=== PATIENT | male | born 1955 | race African-American/Black ===

== ENCOUNTER 2018-08-24 18:01 | Inpatient (IN) | payer SELFPAY ==
[~2018-08-24] VITALS: Ht 177.8 cm; Wt 88.5 kg
[2018-08-24 20:22] LABS: BASOPHILS % 0.6 % (0.0-2.0); EOSINOPHILS % 1.9 % (0.0-5.0); HEMATOCRIT. 40.5 % (42.0-52.0); HEMOGLOBIN. 13.7 g/dL (14.0-18.0); LYMPHOCYTES % 34.1 % (20.0-50.0); MEAN CORPUSCULAR HEMOGLOBIN 30.9 pg (28.0-32.0); MEAN CORPUSCULAR VOLUME 91.4 fL (80.0-94.0); MONOCYTES % 6.2 % (2.0-8.0); NEUTROPHILS % 57.2 % (40.0-76.0); PLATELET 158 x1000/uL (130-400); RED BLOOD CELL COUNT 4.43 mill/uL (4.7-6.1); RED CELL DISTRIBUTION WIDTH 13.1 % (11.6-14.6)
[2018-08-24 20:30] LABS: CHLORIDE 108 mEq/L (98-107); PARTIAL THROMBOPLASTIN TIME 26.6 sec (23.4-31.0)
[2018-08-24] MEDS ORDERED: ENALAPRIL 2.5MG/2ML VIAL 2ML IV ONE (20:30)
[2018-08-24] MEDS ORDERED: MAGNESIUM/ALUMINUM HYDROXIDE/SIMETHICONE 30ML UDC PO PRN (23:15)
[2018-08-24] MEDS ORDERED: IPRATROPIUM/ALBUTEROL 0.5-3(2.5)MG/3ML NEB INH PRN (23:15)
[2018-08-24] MEDS ORDERED: ACETAMINOPHEN 325MG TABLET PO PRN (23:15)
[2018-08-24] MEDS ORDERED: DOCUSATE SODIUM 100MG CAPSULE PO PRN (23:15)
[2018-08-24] MEDS ORDERED: GUAIFENESIN 200MG/10ML SUGAR FREE UDC PO PRN (23:15)
[2018-08-24] MEDS ORDERED: HYDRALAZINE 20MG/ML VIAL IV PRN ×2 (23:15)
[2018-08-24] MEDS ORDERED: ONDANSETRON HCL 4MG/2ML INJ IV PRN (23:15)
[2018-08-24] MEDS ORDERED: HYDROMORPHONE HCL/PF 2MG/ML CPJ IV PRN (23:15)
[2018-08-24] MEDS ORDERED: DIPHENHYDRAMINE 50MG/ML VIAL IV PRN (23:15)
[2018-08-24] MEDS ORDERED: CLONIDINE 0.1MG TABLET PO PRN (23:15)
[2018-08-24] MEDS ORDERED: LORAZEPAM 2MG/ML CPJ IV PRN (23:15)
[2018-08-24] MEDS ORDERED: NA PHOS,M-B/NA PHOS,DI-BA ENEMA 118ML PR PRN (23:15)
[2018-08-25 00:18] VITALS: BP 153/85
[2018-08-25 04:00] VITALS: BP 139/71
[2018-08-25] MEDS ORDERED: S350 PO (04:24)
[2018-08-25 06:46] LABS: CHLORIDE 111 mEq/L (98-107)
[2018-08-25] MEDS: SODIUM CHLORIDE 0.9% INJ 3ML FLUSH IVF SCH ×3 (06:49→20:30)
[2018-08-25 06:51] LABS: BASOPHILS % 0.6 % (0.0-2.0); EOSINOPHILS % 2.2 % (0.0-5.0); HEMATOCRIT. 38.3 % (42.0-52.0); HEMOGLOBIN. 13.1 g/dL (14.0-18.0); LYMPHOCYTES % 41.9 % (20.0-50.0); MEAN CORPUSCULAR VOLUME 90.8 fL (80.0-94.0); MEAN PLATELET VOLUME 9.2 fl (7.4-10.4); MONOCYTES % 6.7 % (2.0-8.0); NEUTROPHILS % 48.6 % (40.0-76.0); PLATELET 147 x1000/uL (130-400); RED BLOOD CELL COUNT 4.22 mill/uL (4.7-6.1)
[2018-08-25 07:05] LABS: CREATINE KINASE 140 IU/L (39-308)
[2018-08-25 07:08] LABS: CREATINE KINASE MB FRACTION 1.1 ng/mL (0.5-3.6)
[2018-08-25] MEDS: HYDROCODONE/ACETAMINOPHEN 10/325MG TABLET PO PRN (07:43)
[2018-08-25 08:00] VITALS: BP 113/68
[2018-08-25] MEDS: ENOXAPARIN 40MG/0.4ML SYR SUBCUT SCH (09:38)
[2018-08-25 12:00] VITALS: BP 146/82
[2018-08-25] MEDS ORDERED: PNEUMOCOCCAL 23-VAL P-SAC VAC 0.5 ML IM ONE (12:00)
[2018-08-25] MEDS ORDERED: INFLUENZA VIRUS VACCINE(AFLURIA) 0.5ML SYR IM ONE (12:00)
[2018-08-25 16:00] VITALS: BP 138/75
[2018-08-25 16:45] LABS: CREATINE KINASE 127 IU/L (39-308)
[2018-08-25 16:46] LABS: CREATINE KINASE MB FRACTION < 1.0 ng/mL (0.5-3.6); T4 FREE 0.99 ng/dL (0.76-1.46)
[2018-08-25 20:00] VITALS: BP 117/75
[2018-08-26] VITALS: BP 124/75
[2018-08-26 04:00] VITALS: BP 138/84
[2018-08-26] MEDS: SODIUM CHLORIDE 0.9% INJ 3ML FLUSH IVF SCH (05:43)
[2018-08-26 08:00] VITALS: BP 151/85
[2018-08-26] MEDS: HYDROCODONE/ACETAMINOPHEN 10/325MG TABLET PO PRN (08:30)
[2018-08-26] MEDS: ENOXAPARIN 40MG/0.4ML SYR SUBCUT SCH (08:31)
[2018-08-26 09:22] VITALS: BP 151/85
== END 2018-08-26 10:00 | disposition home or self-care (01) | DRG 199 ==
LOC: ER 18:28 → 5WST 22:06 → EDBEDREQ 22:09 → EDBEDREQTM 22:09 → ENRESERV 23:07
PROVIDERS: ADMIT Internal Medicine; ATTEND Internal Medicine
DX: I16.1 Hypertensive emergency (principal); I67.82 Cerebral ischemia; I10 Essential (primary) hypertension; F17.200 Nicotine dependence, unspecified, uncomplicated; F10.10 Alcohol abuse, uncomplicated; Z86.011 Personal history of benign neoplasm of the brain; Z98.1 Arthrodesis status; Z92.3 Personal history of irradiation
CPT/HCPCS: 36415; 71045; 80061; 82550; 82553; 83036; 83880; 84439; 84443; 84484; 85379; 90732; 93005; 93306; 96372; 96374; 96375; 99285; J0360; J1650; J3490

== ENCOUNTER 2020-07-03 19:25 | Inpatient (IN) | payer MEDICARE ==
[~2020-07-03] VITALS: Ht 177.8 cm; Wt 102.1 kg
[~2020-07-03 19:25] MED LIST: CARI350T28 PO
[2020-07-03] MEDS ORDERED: CLONIDINE 0.2MG TABLET PO ONE (21:30)
[2020-07-03 21:32] LABS: BASOPHILS % 0.6 % (0.0-2.0); EOSINOPHILS % 2.8 % (0.0-5.0); HEMATOCRIT. 42.6 % (42.0-52.0); HEMOGLOBIN. 14.1 g/dL (14.0-18.0); MEAN CORPUSCULAR HEMOGLOBIN 30.2 pg (28.0-32.0); MEAN CORPUSCULAR VOLUME 91.3 fL (80.0-94.0); MEAN PLATELET VOLUME 9.3 fl (7.4-10.4); MONOCYTES % 6.2 % (2.0-8.0); NEUTROPHILS % 56.4 % (40.0-76.0); PLATELET 153 x1000/uL (130-400); RED BLOOD CELL COUNT 4.67 mill/uL (4.7-6.1)
[2020-07-03 21:33] LABS: CHLORIDE 109 mEq/L (98-107)
[2020-07-03 21:37] LABS: ETHANOL BLOOD < 10 mg/dL
[2020-07-03 22:04] LABS: CLARITY URINE CLEAR (CLEAR); COLOR URINE YELLOW (YELLOW); KETONES URINE TRACE (NEGATIVE); LEUKOCYTE ESTERASE URINE NEGATIVE (NEGATIVE); NITRITE URINE NEGATIVE (NEGATIVE); OCCULT BLOOD URINE NEGATIVE (NEGATIVE); PH URINE 5.5 (4.5-8.0); PROTEIN URINE NEGATIVE (NEGATIVE); SPECIFIC GRAVITY URINE 1.025 (1.005-1.030)
[2020-07-03 22:14] LABS: *AMPHETAMINES SCREEN URINE NEGATIVE (NEGATIVE); *BARBITURATES SCREEN URINE NEGATIVE (NEGATIVE); *BENZODIAZEPINES SCREEN URINE NEGATIVE (NEGATIVE); *COCAINE SCREEN URINE PRESUMTIVE POSITIVE (NEGATIVE); METHADONE URINE SCREEN NEGATIVE (NEGATIVE); OPIATES URINE SCREEN NEGATIVE (NEGATIVE)
[2020-07-03 22:15] LABS: CANNABINOID URINE SCREEN NEGATIVE (NEGATIVE); PHENCYCLIDINE URINE SCREEN NEGATIVE (NEGATIVE)
[2020-07-03] MEDS ORDERED: DEXAMETHASONE 10 MG/ML VIAL IV ONE (22:30)
[2020-07-03] MEDS ORDERED: LEVETIRACETAM 500MG PREMIX 100 ML IV ONE (22:45)
[2020-07-03] MEDS ORDERED: NICARDIPINE 40MG/200ML PREMIX 200 ML IV ONE (22:45)
[2020-07-03] MEDS ORDERED: MORPHINE SULFATE 2 MG/ML CPJ (NOT FOR IM USE) IV PRN (23:00)
[2020-07-03] MEDS ORDERED: NICARDIPINE 100 MG in SODIUM CHLORIDE 0.9% 60 ML IV PRN (23:00)
[2020-07-03] MEDS: DEXT 5%/LACTATED RINGERS 1,000 ML IV SCH (23:31)
[2020-07-04] VITALS (89 sets, daily range): BP systolic 93–163; BP diastolic 34–95
[2020-07-04] MEDS: DEXAMETHASONE 4MG/ML 1ML VIAL IV SCH ×4 (01:08→17:16)
[2020-07-04] MEDS: NICARDIPINE 100 MG in SODIUM CHLORIDE 0.9% 60 ML IV PRN ×2 (03:03→13:05)
[2020-07-04 05:34] LABS: BASOPHILS % 0.3 % (0.0-2.0); EOSINOPHILS % 0.3 % (0.0-5.0); HEMATOCRIT. 39.7 % (42.0-52.0); LYMPHOCYTES % 13.4 % (20.0-50.0); MEAN CORPUSCULAR HEMOGLOBIN 32.1 pg (28.0-32.0); MEAN PLATELET VOLUME 9.2 fl (7.4-10.4); MONOCYTES % 1.5 % (2.0-8.0); NEUTROPHILS % 84.5 % (40.0-76.0); PLATELET 146 x1000/uL (130-400); RED BLOOD CELL COUNT 4.36 mill/uL (4.7-6.1); RED CELL DISTRIBUTION WIDTH 12.7 % (11.6-14.6)
[2020-07-04 05:42] LABS: CHLORIDE 110 mEq/L (98-107)
[2020-07-04 05:58] LABS: LDL CHOLESTEROL 66 mg/dL (5-100)
[2020-07-04 06:00] LABS: HDL CHOLESTEROL 68 mg/dL (40-59)
[2020-07-04] MEDS: PANTOPRAZOLE SODIUM 40 MG/VIAL IV SCH (08:17)
[2020-07-04] MEDS ORDERED: LEVETIRACETAM 500MG PREMIX 100 ML IV SCH (09:00)
[2020-07-04] MEDS: LEVETIRACETAM 500MG PREMIX 100 ML IV SCH ×2 (09:55→20:43)
[2020-07-04] MEDS: HYDRALAZINE HCL 50MG TABLET PO SCH ×2 (13:56→20:42)
[2020-07-04] MEDS: DEXT 5%/LACTATED RINGERS 1,000 ML IV SCH (16:09)
[2020-07-04] MEDS ORDERED: HYDRALAZINE 20MG/ML VIAL IV PRN (17:45)
[2020-07-04] MEDS ORDERED: IPRATROPIUM/ALBUTEROL 0.5-3(2.5)MG/3ML NEB HHN PRN (17:45)
[2020-07-04] MEDS ORDERED: ACETAMINOPHEN 325MG TABLET PO PRN (17:45)
[2020-07-04] MEDS ORDERED: ACETAMINOPHEN 650MG SUPP PR PRN (17:45)
[2020-07-04] MEDS ORDERED: BISACODYL 10MG SUPP PR PRN (17:45)
[2020-07-04 18:41] LABS: T4 FREE 1.15 ng/dL (0.76-1.46)
[2020-07-04] MEDS: AMLODIPINE 5MG TABLET PO SCH (20:42)
[2020-07-04 21:04] LABS: INR 1.1; PROTHROMBIN TIME 11.6 sec (9.6-11.0)
[2020-07-05] VITALS (64 sets, daily range): BP systolic 45–154; BP diastolic 34–97
[2020-07-05] MEDS: DEXAMETHASONE 4MG/ML 1ML VIAL IV SCH ×3 (00:04→11:55)
[2020-07-05] MEDS: HYDRALAZINE HCL 50MG TABLET PO SCH (05:25)
[2020-07-05] MEDS: PANTOPRAZOLE SODIUM 40 MG/VIAL IV SCH (08:11)
[2020-07-05] MEDS: AMLODIPINE 5MG TABLET PO SCH ×2 (08:12→21:57)
[2020-07-05] MEDS: LEVETIRACETAM 500MG PREMIX 100 ML IV SCH ×2 (08:12→21:56)
[2020-07-05] MEDS: DEXT 5%/LACTATED RINGERS 1,000 ML IV SCH (08:12)
[2020-07-05] MEDS ORDERED: GADOTERATE MEGLUMINE 5 MMOL/10 ML VIAL IV ONE (09:29)
[2020-07-05] MEDS: NICARDIPINE 100 MG in SODIUM CHLORIDE 0.9% 60 ML IV PRN (10:37)
[2020-07-05] MEDS ORDERED: CARVEDILOL 3.125 MG TABLET PO SCH ×2 (11:30→21:00)
[2020-07-05] MEDS ORDERED: HYDRALAZINE HCL 50MG TABLET PO SCH (11:30)
[2020-07-05 13:24] LABS: HEMATOCRIT. 39.8 % (42.0-52.0); HEMOGLOBIN. 13.4 g/dL (14.0-18.0); MEAN CORPUSCULAR HEMOGLOBIN 30.6 pg (28.0-32.0); MEAN CORPUSCULAR VOLUME 90.7 fL (80.0-94.0); MEAN PLATELET VOLUME 9.4 fl (7.4-10.4); PLATELET 173 x1000/uL (130-400); RED BLOOD CELL COUNT 4.39 mill/uL (4.7-6.1); RED CELL DISTRIBUTION WIDTH 13.4 % (11.6-14.6)
[2020-07-05 13:36] LABS: CHLORIDE 111 mEq/L (98-107)
[2020-07-05 13:46] LABS: PLATELET ESTIMATE NORMAL
[2020-07-05] MEDS: HYDRALAZINE HCL 100MG TABLET PO SCH ×2 (14:58→21:57)
[2020-07-06] MEDS: DEXAMETHASONE 4MG/ML 1ML VIAL IV SCH ×2 (01:51→13:16)
[2020-07-06] MEDS: HYDRALAZINE HCL 100MG TABLET PO SCH ×3 (07:05→22:18)
[2020-07-06 07:08] LABS: CHLORIDE 106 mEq/L (98-107)
[2020-07-06 07:13] LABS: HEMATOCRIT. 44.8 % (42.0-52.0); HEMOGLOBIN. 15.4 g/dL (14.0-18.0); MEAN CORPUSCULAR HEMOGLOBIN 31.5 pg (28.0-32.0); MEAN CORPUSCULAR VOLUME 91.6 fL (80.0-94.0); MEAN PLATELET VOLUME 10.1 fl (7.4-10.4); PLATELET 180 x1000/uL (130-400); RED BLOOD CELL COUNT 4.89 mill/uL (4.7-6.1); RED CELL DISTRIBUTION WIDTH 13.5 % (11.6-14.6)
[2020-07-06 08:00] VITALS: BP 162/92
[2020-07-06] MEDS ORDERED: LOSARTAN POTASSIUM 25 MG TABLET PO SCH (09:00)
[2020-07-06] MEDS: AMLODIPINE 5MG TABLET PO SCH ×2 (09:15→20:50)
[2020-07-06] MEDS: PANTOPRAZOLE SODIUM 40 MG/VIAL IV SCH (09:16)
[2020-07-06] MEDS: LEVETIRACETAM 500MG PREMIX 100 ML IV SCH ×2 (09:16→20:50)
[2020-07-06 12:00] VITALS: BP 165/85
[2020-07-06] MEDS ORDERED: LEVOFLOXACIN 500MG PREMIX 100 ML IV SCH (13:00)
[2020-07-06] MEDS ORDERED: HYDR100T26 MT (14:19)
[2020-07-06] MEDS ORDERED: LOSA25TA3 MT (14:19)
[2020-07-06] MEDS ORDERED: LEVO500T89 PO (14:19)
[2020-07-06] MEDS ORDERED: DEXA2TAB PO (14:19)
[2020-07-06] MEDS ORDERED: AMLO10TA4 MT (14:19)
[2020-07-06] MEDS ORDERED: KEPP500 MT (14:19)
[2020-07-06 15:17] LABS: CLARITY URINE CLEAR (CLEAR); COLOR URINE YELLOW (YELLOW); KETONES URINE NEGATIVE (NEGATIVE); LEUKOCYTE ESTERASE URINE NEGATIVE (NEGATIVE); NITRITE URINE NEGATIVE (NEGATIVE); OCCULT BLOOD URINE NEGATIVE (NEGATIVE); PH URINE 5.5 (4.5-8.0); PROTEIN URINE NEGATIVE (NEGATIVE); SPECIFIC GRAVITY URINE 1.004 (1.005-1.030); UROBILINOGEN URINE 0.2 E.U./dL (0.2-1.0)
[2020-07-06 16:00] VITALS: BP 153/72
[2020-07-06 20:00] VITALS: BP 146/81
[2020-07-06 21:19] VITALS: BP 146/81
[2020-07-06 21:50] LABS: PLATELET ESTIMATE NORMAL
[2020-07-07] VITALS: BP 138/65
[2020-07-07] MEDS ORDERED: FAMOTIDINE 20MG TABLET PO SCH (09:00)
== END 2020-07-07 02:15 | disposition home or self-care (01) | DRG 64 ==
LOC: ER 19:25 → MICUNO 22:38 → ENRESERV 23:49 → 5WST 07-05 16:10
PROVIDERS: ADMIT Internal Medicine; ATTEND Internal Medicine
DX: I61.0 Nontraumatic intracerebral hemorrhage in hemisphere, subcortical (principal); I50.33 Acute on chronic diastolic (congestive) heart failure; Z20.822 Contact with and (suspected) exposure to COVID-19; I11.0 Hypertensive heart disease with heart failure; J06.9 Acute upper respiratory infection, unspecified; D72.829 Elevated white blood cell count, unspecified; F17.200 Nicotine dependence, unspecified, uncomplicated; Z79.899 Other long term (current) drug therapy; Z92.3 Personal history of irradiation; Z88.0 Allergy status to penicillin; Z98.1 Arthrodesis status
CPT/HCPCS: 36415; 70553; 71045; 80048; 80053; 80061; 80305; 80320; 81003; 83036; 84145; 84439; 84443; 85025; 86850; 86900; 87426; 93005; 93306; 93880; 97162; 99291; A9577; C9113; J0360; J1100; J1953; J1956; J2270; J3490; J7040; J7050; G0480